=== PATIENT | male | born 1975 | race African-American/Black ===

== ENCOUNTER 2018-03-18 15:36 | Emergency (ER) | payer SELFPAY ==
[~2018-03-18] VITALS: Ht 182.8 cm; Wt 72.6 kg
[2018-03-18] MEDS ORDERED: PENICILLIN VK500 MG PO (15:44)
[2018-03-18] MEDS ORDERED: NAPROSYN500 MG PO (15:44)
[2018-03-18] MEDS ORDERED: Peridex 473 ML473 ML PO (15:44)
== END 2018-03-18 16:02 | disposition home or self-care (01) ==
LOC: ED 15:36
DX: K02.9 Dental caries, unspecified (principal); R03.0 Elevated blood-pressure reading, without diagnosis of hypertension